=== PATIENT | female | born 2000 | race Caucasian/White ===

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

== ENCOUNTER 2018-02-20 14:31 | Emergency (ER) | payer SELFPAY ==
[~2018-02-20] VITALS: Ht 167.6 cm; Wt 81.6 kg
[2018-02-20 14:34] VITALS: BP 143/84
== END 2018-02-20 15:41 | disposition home or self-care (01) ==
LOC: ED 14:31
DX: N63.10 Unspecified lump in the right breast, unspecified quadrant (principal)

== ENCOUNTER → 2019-02-19 | Outpatient (CLI) | payer OTHER | END | disposition home or self-care (01) | LOC: US 13:48 | DX: N91.2 Amenorrhea, unspecified (principal) ==

== ENCOUNTER 2019-03-08 16:41 | Emergency (ER) | payer OTHER ==
[~2019-03-08] VITALS: Ht 165.1 cm; Wt 94.3 kg
[2019-03-08 16:47] VITALS: BP 117/75
[2019-03-08 17:24] LABS: BASO % 0.3 % (0.0-1.0); EOS % 0.3 % (1.0-4.0); HEMATOCRIT 42.4 % (37.0-47.0); HEMOGLOBIN 14.2 g/dl (12.0-16.0); MEAN CELL VOLUME 89.8 fl (81.0-99.0); MEAN CORPUSCULAR HGB 30.1 pg (27.0-31.0); MEAN CORPUSCULAR HGB CONC 33.5 g/dl (33.0-37.0); MEAN PLATELET VOLUME 10.7 fl (9.6-12.3); MONO # 0.4 10*3/uL (0.1-1.0); MONO % 4.6 % (3.0-9.0); NEUT # 6.3 10*3/uL (2.3-7.9); NEUT % 71.6 % (47.0-73.0); PLATELET COUNT AUTOMATED 230 10*3/uL (130-400); RED BLOOD COUNT 4.72 10*6/uL (4.10-5.10); RED CELL DISTRI WIDTH 11.9 % (0-14.5); WHITE BLOOD COUNT 8.8 10*3/uL (4.8-10.8)
[2019-03-08 17:42] LABS: ALBUMIN 4.2 gm/dl (3.1-4.5); ALKALINE PHOSPHATASE 58 U/L (45-117); BUN 17 mg/dl (7-24); CHLORIDE 108 mmol/L (98-107); CPK 45 U/L (26-192); CREATININE 0.86 mg/dL (0.55-1.02); POTASSIUM 3.6 mmol/L (3.5-5.1); SGOT/AST 7 IU/L (3-35); SGPT/ALT 19 U/L (12-78); SODIUM 140 mmol/L (136-145); TOTAL PROTEIN 7.9 gm/dL (6.4-8.2)
[2019-03-08 17:45] LABS: B-hCG (QUALITATIVE) NEGATIVE (NEGATIVE)
[2019-03-08 17:51] LABS: ETHYL ALCOHOL < 3.0 mg/dl (<3)
[2019-03-08 17:54] LABS: URINE AMPHETAMINES < 1000 (1000ng/ml); URINE BARBITURATES < 200 (200ng/ml); URINE BENZODIAZEPINES < 200 (200ng/ml); URINE CANNABINOIDS (THC) > 50 (50ng/ml); URINE COCAINE < 300 (300ng/ml); URINE METHADONE < 300 (300ng/ml); URINE OPIATES < 300 (300ng/ml)
[2019-03-08 17:55] LABS: URINE PHENCYCLIDINE < 25 (25ng/ml)
[2019-03-08 18:08] LABS: BILIRUBIN 2+ (NEGATIVE); BLOOD TRACE-LYSED (NEGATIVE); CLARITY CLOUDY (CLEAR); COLOR YELLOW (YELLOW); GLUCOSE NEGATIVE (NEGATIVE); KETONE 2+ (NEGATIVE); SPECIFIC GRAVITY 1.025 (1.005-1.030)
[2019-03-08 18:09] LABS: EPITHELIAL CELLS TNTC; LEUKO ESTERASE 2+ (NEGATIVE); NITRITE NEGATIVE (NEGATIVE); UROBILINOGEN 0.2 E.U./dl (0.2-1.0)
== END 2019-03-08 18:38 | disposition home or self-care (01) ==
LOC: ED 16:41
PROVIDERS: Emergency Medicine
DX: S06.0X9A Concussion with loss of consciousness of unspecified duration, initial encounter (principal); R55 Syncope and collapse; F14.90 Cocaine use, unspecified, uncomplicated; W18.30XA Fall on same level, unspecified, initial encounter; Y93.89 Activity, other specified; Y92.89 Other specified places as the place of occurrence of the external cause; Y99.8 Other external cause status

== ENCOUNTER 2020-08-15 10:42 | Emergency (ER) | payer OTHER ==
[~2020-08-15] VITALS: Ht 165.1 cm; Wt 81.2 kg
[2020-08-15 10:49] VITALS: BP 153/102
[2020-08-15 11:11] LABS: BASO % 0.3 % (0.0-1.0); EOS % 0.4 % (1.0-4.0); HEMATOCRIT 40.4 % (37.0-47.0); LYMPH # 1.6 10*3/uL (1.3-4.4); LYMPH % 21.1 % (27.0-41.0); MEAN CELL VOLUME 87.3 fl (81.0-99.0); MEAN CORPUSCULAR HGB 30.5 pg (27.0-31.0); MEAN CORPUSCULAR HGB CONC 34.9 g/dl (33.0-37.0); MEAN PLATELET VOLUME 10.8 fl (9.6-12.3); MONO # 0.4 10*3/uL (0.1-1.0); MONO % 5.4 % (3.0-9.0); NEUT # 5.6 10*3/uL (2.3-7.9); NEUT % 72.4 % (47.0-73.0); PLATELET COUNT AUTOMATED 223 10*3/uL (130-400); RED BLOOD COUNT 4.63 10*6/uL (4.10-5.10); RED CELL DISTRI WIDTH 11.9 % (0-14.5); WHITE BLOOD COUNT 7.8 10*3/uL (4.8-10.8)
[2020-08-15 11:28] LABS: ALBUMIN 4.1 gm/dl (3.1-4.5); ALKALINE PHOSPHATASE 48 U/L (45-117); BUN 9 mg/dl (7-24); CHLORIDE 108 mmol/L (98-107); CREATININE 0.63 mg/dL (0.55-1.02); LIPASE 177 U/L (73-393); POTASSIUM 3.2 mmol/L (3.5-5.1); SGOT/AST 6 IU/L (3-35); SGPT/ALT 14 U/L (12-78); SODIUM 135 mmol/L (136-145); TOTAL PROTEIN 7.7 gm/dL (6.4-8.2)
[2020-08-15 11:29] LABS: BETA-HCG, QUANT < 1.0 mIU/mL (1-3)
[2020-08-15 12:15] LABS: BILIRUBIN Negative (Negative); BLOOD Negative (Negative); CLARITY Clear (Clear); COLOR Yellow (Yellow); GLUCOSE Negative (Negative); KETONE 2+ (Negative); LEUKO ESTERASE Negative (Negative); NITRITE Negative (Negative); PH 5.5 (4.5-8.0); SPECIFIC GRAVITY >= 1.030 (1.001-1.030)
[2020-08-15 12:30] LABS: BACTERIA 2+; EPITHELIAL CELLS 21-30; YEAST 1+
[2020-08-15] MEDS ORDERED: ZOFRAN4 MG PO (14:03)
== END 2020-08-15 14:14 | disposition home or self-care (01) ==
LOC: ED 10:42
PROVIDERS: Emergency Medicine
DX: N83.201 Unspecified ovarian cyst, right side (principal); R19.7 Diarrhea, unspecified; R11.2 Nausea with vomiting, unspecified; Z91.040 Latex allergy status

== ENCOUNTER 2021-11-30 08:42 | Emergency (ER) | payer OTHER ==
[~2021-11-30] VITALS: Ht 165.1 cm; Wt 56.7 kg
[~2021-11-30 08:42] MED LIST: ZOFRAN4 MG PO
[2021-11-30 08:54] VITALS: BP 124/68
[2021-11-30 09:19] LABS: BILIRUBIN Negative (Negative); BLOOD Negative (Negative); CLARITY Clear (Clear); COLOR Yellow (Yellow); GLUCOSE Negative (Negative); KETONE Negative (Negative); LEUKO ESTERASE Negative (Negative); NITRITE Negative (Negative); PH 5.5 (4.5-8.0); SPECIFIC GRAVITY 1.025 (1.001-1.030)
[2021-11-30 09:58] LABS: MUCOUS 1+
[2021-11-30 09:59] LABS: BACTERIA 2+; RBC 0-2 rbc/hpf (0-2); WBC 0-2 wbc/hpf (0-5)
[2021-11-30] MEDS ORDERED: CEPHALEXIN250 M1 PO ×2 (10:03)
== END 2021-11-30 10:11 | disposition home or self-care (01) ==
LOC: ED 08:42
PROVIDERS: Student in an Organized Health Care Education/Training Program
DX: O46.91 Antepartum hemorrhage, unspecified, first trimester (principal); Z3A.01 Less than 8 weeks gestation of pregnancy; Z91.040 Latex allergy status

== ENCOUNTER 2021-12-06 19:18 | Emergency (ER) | payer OTHER ==
[~2021-12-06] VITALS: Ht 165.1 cm; Wt 56.7 kg
[~2021-12-06 19:18] MED LIST changes: +CEPHALEXIN250 M1 PO
[2021-12-06 20:14] VITALS: BP 159/80
[2021-12-06 20:56] LABS: BASO % 0.2 % (0.0-1.0); EOS % 0.4 % (1.0-4.0); HEMATOCRIT 41.3 % (37.0-47.0); LYMPH # 2.6 10*3/uL (1.3-4.4); LYMPH % 24.8 % (27.0-41.0); MEAN CELL VOLUME 90.6 fl (81.0-99.0); MEAN CORPUSCULAR HGB 31.4 pg (27.0-31.0); MEAN CORPUSCULAR HGB CONC 34.6 g/dl (33.0-37.0); MEAN PLATELET VOLUME 10.1 fl (9.6-12.3); MONO # 0.5 10*3/uL (0.1-1.0); MONO % 4.7 % (3.0-9.0); NEUT # 7.3 10*3/uL (2.3-7.9); NEUT % 69.7 % (47.0-73.0); PLATELET COUNT AUTOMATED 237 10*3/uL (130-400); RED BLOOD COUNT 4.56 10*6/uL (4.10-5.10); RED CELL DISTRI WIDTH 12.2 % (0-14.5); WHITE BLOOD COUNT 10.5 10*3/uL (4.8-10.8)
[2021-12-06 20:56] LABS: BILIRUBIN Negative (Negative); BLOOD Trace-Lysed (Negative); CLARITY Clear (Clear); COLOR Yellow (Yellow); GLUCOSE 1+ (Negative); KETONE Trace (Negative); LEUKO ESTERASE Negative (Negative); NITRITE Negative (Negative); SPECIFIC GRAVITY >= 1.030 (1.001-1.030); UROBILINOGEN 0.2 E.U./dl (0.0-1.0)
[2021-12-06 21:05] LABS: BACTERIA 2+
[2021-12-06 21:06] LABS: WBC 0-2 wbc/hpf (0-5)
[2021-12-06 21:11] LABS: ALKALINE PHOSPHATASE 49 U/L (45-117); BUN 14 mg/dl (7-24); CHLORIDE 107 mmol/L (98-107); CREATININE 0.63 mg/dL (0.55-1.02); LIPASE 119 U/L (73-393); POTASSIUM 3.5 mmol/L (3.5-5.1); SGOT/AST 10 IU/L (3-35); SGPT/ALT 16 U/L (12-78); SODIUM 141 mmol/L (136-145); TOTAL PROTEIN 7.3 gm/dL (6.4-8.2)
== END 2021-12-06 23:15 | disposition home or self-care (01) ==
LOC: ED 19:18
PROVIDERS: Physician Assistant
DX: O46.91 Antepartum hemorrhage, unspecified, first trimester (principal); Z3A.01 Less than 8 weeks gestation of pregnancy; Z91.040 Latex allergy status

== ENCOUNTER → 2021-12-07 | Outpatient (CLI) | payer OTHER | END | disposition home or self-care (01) | LOC: US 07:30 | PROVIDERS: ATTEND Physician Assistant | DX: O34.81 Maternal care for other abnormalities of pelvic organs, first trimester (principal); N83.11 Corpus luteum cyst of right ovary; O46.8X1 Other antepartum hemorrhage, first trimester; Z3A.01 Less than 8 weeks gestation of pregnancy ==